=== PATIENT | female | born 1940 | race Caucasian/White ===

== ENCOUNTER 2018-05-05 06:20 | Day surgery (SDC) | payer MEDICARE, BC ==
[~2018-05-05 06:20] MED LIST: ACETAZOLAMIDE 250 MG PO ONE; CYCLOPENTOLATE 1% SOL ONE; KETOROLAC 0.5% OPTH 60 DROP SOL ONE; PHENYLEPHRINE HCL 10% OPHTHAL SOL ONE; PROPARACAINE HCL 0.5% OPHTHALMIC SOL ONE
[2018-05-05] MEDS ORDERED: ACETAZOLAMIDE 250 MG PO ONE (06:30)
[2018-05-05] MEDS: PROPARACAINE HCL 0.5% OPHTHALMIC SOL RIGHTEYE ONE ×2 (06:37→08:05)
[2018-05-05] MEDS ORDERED: PHENYLEPHRINE HCL 10% OPHTHAL SOL RIGHTEYE ONE ×2 (06:37→06:51)
[2018-05-05] MEDS ORDERED: CYCLOPENTOLATE 1% SOL RIGHTEYE ONE ×2 (06:38→06:52)
[2018-05-05] MEDS ORDERED: KETOROLAC 0.5% OPTH 60 DROP SOL RIGHTEYE ONE ×2 (06:38→06:52)
[2018-05-05] MEDS ORDERED: PROPARACAINE HCL 0.5% OPHTHALMIC SOL RIGHTEYE ONE (06:51)
[2018-05-05] MEDS ORDERED: CYCLOPENTOLATE 2% RIGHTEYE ONE (06:52)
[2018-05-05] MEDS ORDERED: FENTANYL 100MCG/2ML SOL ONE (07:38)
[2018-05-05] MEDS ORDERED: MIDAZOLAM 2 MG/2 ML SOL ONE (07:39)
[2018-05-05] MEDS ORDERED: LIDOCAINE HCL 1% MPF 30 SOL ONE (07:58)
[2018-05-05] MEDS ORDERED: BSS 500 ML 500 ML IR ONE (07:58)
[2018-05-05] MEDS ORDERED: POVIDONE IODINE 5% SOL ONE (07:58)
== END 2018-05-05 08:53 | disposition home or self-care (01) | DRG 125 ==
LOC: SURG 06:20
PROVIDERS: ATTEND Ophthalmology
DX: H40.10X2 Unspecified open-angle glaucoma, moderate stage (principal); H25.89 Other age-related cataract
CPT/HCPCS: J2250; J3010; A9270-GY; J2001

== ENCOUNTER 2018-06-02 10:17 | Day surgery (SDC) | payer MEDICARE, BC ==
[~2018-06-02 10:17] MED LIST changes: -ACETAZOLAMIDE 250 MG PO ONE; -CYCLOPENTOLATE 1% SOL ONE; +FENTANYL 100MCG/2ML SOL ONE; -KETOROLAC 0.5% OPTH 60 DROP SOL ONE; +MIDAZOLAM 2 MG/2 ML SOL ONE; -PHENYLEPHRINE HCL 10% OPHTHAL SOL ONE; -PROPARACAINE HCL 0.5% OPHTHALMIC SOL ONE
[2018-06-02] MEDS ORDERED: ACETAZOLAMIDE 250 MG PO ONE (10:31)
[2018-06-02] MEDS: PROPARACAINE HCL 0.5% OPHTHALMIC SOL ONE ×3 (10:41→11:30)
[2018-06-02] MEDS: CYCLOPENTOLATE 1% SOL ONE ×2 (10:42→10:54)
[2018-06-02] MEDS: KETOROLAC 0.5% OPTH 60 DROP SOL ONE ×2 (10:42→10:54)
[2018-06-02] MEDS: PHENYLEPHRINE HCL 10% OPHTHAL SOL ONE ×2 (10:42→10:54)
[2018-06-02] MEDS ORDERED: POVIDONE IODINE 5% SOL ONE (11:23)
[2018-06-02] MEDS ORDERED: IMPRIMIS ONE (11:23)
[2018-06-02] MEDS ORDERED: LIDOCAINE HCL 1% MPF 30 SOL ONE (11:24)
[2018-06-02] MEDS ORDERED: BSS 500 ML 500 ML IR ONE (11:24)
[2018-06-02] MEDS ORDERED: OFLOXACIN 0.3% OPHTHAL 1 DROP SOL LEFTEYE ONE (11:48)
[2018-06-02 12:04] VITALS: BP 108/46; PULSE 61; RESP 20; TEMP 96.8; O2SAT 94
== END 2018-06-02 12:20 | disposition home or self-care (01) | DRG 125 ==
LOC: SURG 10:17
PROVIDERS: ATTEND Ophthalmology
DX: H25.89 Other age-related cataract (principal); H40.10X2 Unspecified open-angle glaucoma, moderate stage
CPT/HCPCS: 0191T; 66984; J2250; J3010; A9270-GY; C1783; J2001